=== PATIENT | female | born 1985 | race American Indian/Alaskan Native ===

== ENCOUNTER 2016-03-19 12:54 | Outpatient (CLI) | payer MEDICAID ==
[2016-03-19 14:13] LABS: Bacteria,Urine 1+ /HPF (Negative); Bilirubin,Urine NEG (Negative); Blood,Urine NEG (Negative); Ketones,Urine NEG (Negative); Leukocyte Esterase,Urine LG (Negative); Mucus,Urine FEW /HPF; Nitrite,Urine NEG (Negative); Protein,Urine <15 mg/dL mg/dL (Negative); Urobilinogen,Urine < 2.0 mg/dL (<2.0)
[2016-03-19 14:18] LABS: Hemoglobin 10.8 gm/dl (10.1-14.3); Mean Corpuscular HGB Conc 34 % (30-34); Mean Corpuscular Hemoglobin 32 pg (28-32); Mean Corpuscular Volume 97 fl (79-97); Platelet Count 173 K/mm3 (140-440); Red Blood Count 3.32 M/mm3 (3.65-5.03); Red Cell Distribution Width 14.5 % (13.2-15.2); White Blood Count 6.5 K/mm3 (4.5-11.0)
[2016-03-19 14:19] LABS: Alanine Aminotransferase 23 units/L (7-56); Lactate Dehydrogenase 178 units/L (91-180); Uric Acid 4.1 mg/dL (3.5-7.6)
[2016-03-19 14:57] VITALS: BP 133/65
--- NOTE | 2016-03-20 07:10 | Ultrasound Report ---
BIOPHYSICAL PROFILE: INDICATION: well being. No care. COMPARISON: None similar. TECHNIQUE: Transabdominal ultrasound with Doppler interrogation. 2 - breathing movements 2 - movements 2 - posture and tone 2 - Qualitative amniotic fluid volume 8 - TOTAL SCORE OF POSSIBLE 8 Heart Rate (bpm) 130
--- NOTE | 2016-03-20 11:05 | Ultrasound Report ---
OB ULTRASOUND GREATER THAN 14 WEEKS - TRANSABDOMINAL AND TRANSVAGINAL: INDICATION: well being. No care. Evaluate cervical length. COMPARISON: None similar at this institution. TECHNIQUE: Transabdominal grayscale ultrasound with Doppler interrogation. Transvaginal exam to better evaluate cervical length also performed. Gestation: price Position: cephalic Amniotic Fluid: WNL (7-24 cm) SOLANGE = 22.2 cm Placenta: posterior Placental Grade: I Heart Rate: 130 BPM Cervical length: 3.0 cm (Normal > 3 cm) NEUROANATOMY VISUALIZED: Choroid Plexus Cisterna Magnum Cerebellum Lateral Ventricle ANATOMY VISUALIZED: Stomach Kidneys Bladder Diaphragm 4 Chamber Heart Heart 3 Vessel Cord Abd. Cord Insert SPINE VISUALIZED: Longitudinal Transverse BPD: 8.4 cm = 33 w 6 d HC: 31.6 cm = 35 w 3 d AC: 31.1 cm = 35 w 0 d FL: 7.2 cm = 36 w 6 d HC/AC Ratio: 1.02 Cephalic Index: 79.6 Estimated Weight: 2678 grams Clinical age = 35 w 2 d EDC: 04-21-16 US Gest. Age = 35 w 2 d EDC: 04-21-16 CONCLUSION: Single, viable intrauterine gestation with ultrasound estimated age of 35 weeks and 2 days and EDC of 04/21/2016, currently in cephalic lie with details, as above. Thank you for the opportunity to participate in this patient's care.
== END 2016-03-19 16:20 | disposition home or self-care (01) ==
LOC: TRG 12:54
PROVIDERS: ATTEND Obstetrics & Gynecology
DX: Z34.90 Encounter for supervision of normal pregnancy, unspecified, unspecified trimester (principal); Z3A.00 Weeks of gestation of pregnancy not specified
CPT/HCPCS: 36415; 59025; 76805; 76817; 76819; 81001; 82565; 83615; 84450; 84460; 84550; 85027

== ENCOUNTER 2016-03-26 12:31 | Outpatient (CLI) | payer MEDICAID ==
[2016-03-26 14:43] LABS: Hemoglobin 10.6 gm/dl (10.1-14.3); Mean Corpuscular HGB Conc 33 % (30-34); Mean Corpuscular Hemoglobin 32 pg (28-32); Mean Corpuscular Volume 96 fl (79-97); Platelet Count 173 K/mm3 (140-440); Red Blood Count 3.33 M/mm3 (3.65-5.03); Red Cell Distribution Width 14.3 % (13.2-15.2); White Blood Count 7.6 K/mm3 (4.5-11.0)
[2016-03-26 14:47] LABS: Alanine Aminotransferase 19 units/L (7-56); Lactate Dehydrogenase 155 units/L (91-180); Uric Acid 3.6 mg/dL (3.5-7.6)
[2016-03-26 14:51] LABS: Bilirubin,Urine NEG (Negative); Blood,Urine NEG (Negative); Ketones,Urine NEG (Negative); Leukocyte Esterase,Urine MOD (Negative); Mucus,Urine 3+ /HPF; Nitrite,Urine NEG (Negative)
[2016-03-26 15:30] VITALS: BP 135/88
--- NOTE | 2016-03-26 17:05 | Ultrasound Report ---
BIOPHYSICAL PROFILE: INDICATION: Elevated blood pressure, 35 weeks . COMPARISON: 03/19/2016. TECHNIQUE: Transabdominal ultrasound with Doppler interrogation. 2 - breathing movements 2 - movements 2 - posture and tone 2 - Qualitative amniotic fluid volume 8 - TOTAL SCORE OF POSSIBLE 8 Heart Rate (bpm) 132
--- NOTE | 2016-03-27 10:23 | Ultrasound Report ---
OB ULTRASOUND: HISTORY: well-being. TECHNIQUE: Transabdominal ultrasound with Doppler interrogation. Gestation: price Position: cephalic Amniotic Fluid: WNL (7-24 cm) SOLANGE = 22.4 cm Placenta: posterior Placental Grade: I Heart Rate: 132 BPM BPD: 8.7 cm = 35 w 0 d HC: 32.4 cm = 36 w 5 d AC: 32.4 cm = 36 w 2 d FL: 7.1 cm = 36 w 2 d HC/AC Ratio: 1.00 Cephalic Index: 77.3 Estimated Weight: 2869 grams Clinical age = 36 w 2 d EDC: 04-21-16 US Gest. Age = 36 w 1 d EDC: 04-22-16
== END 2016-03-26 16:57 | disposition home or self-care (01) ==
LOC: TRG 12:31
PROVIDERS: ATTEND Obstetrics & Gynecology
DX: O26.893 Other specified pregnancy related conditions, third trimester (principal); R03.0 Elevated blood-pressure reading, without diagnosis of hypertension; O77.9 Labor and delivery complicated by fetal stress, unspecified; Z3A.36 36 weeks gestation of pregnancy
CPT/HCPCS: 36415; 59025; 76816; 76819; 81001; 82565; 83615; 84450; 84460; 84550; 85027

== ENCOUNTER 2016-04-03 01:50 | Inpatient (IN) | payer MEDICAID ==
[2016-04-03] MEDS ORDERED: LACTATED RINGERS 1,000 ML IV SCH ×2 (05:00→14:00)
[2016-04-03] MEDS ORDERED: LACTATED RINGERS 1,000 ML ONE ×2 (06:39→10:11)
[2016-04-03] MEDS ORDERED: SUBLIMAZE IV PRN (13:22)
[2016-04-03] MEDS ORDERED: ZOFRAN IV PRN (13:22)
[2016-04-03] MEDS ORDERED: NARCAN 0.4 MG/1 ML IV PRN (13:22)
[2016-04-03] MEDS ORDERED: STADOL IV PRN (13:22)
[2016-04-03] MEDS ORDERED: XYLOCAINE 2% INFILTRATI ONE (13:22)
[2016-04-03] MEDS ORDERED: MINERAL OIL PO PRN (13:22)
[2016-04-03] MEDS ORDERED: BRETHINE IVP PRN (13:22)
[2016-04-03] MEDS ORDERED: BRETHINE SUB-Q PRN (13:51)
[2016-04-03] MEDS ORDERED: ePHEDrine SULFATE IV PRN (13:55)
[2016-04-03] MEDS ORDERED: PITOCin/NS 30 UNIT/500ML 30,000 MILLIUNITS/500 ML BAG IV SCH (14:00)
[2016-04-03] MEDS ORDERED: FLAGYL PO ONE (14:00)
[2016-04-03] MEDS ORDERED: PITOCin/NS 20 UNIT/1000ML DRIP 20,000 MILLIUNITS/1,000 ML BAG IV SCH (14:00)
--- NOTE | 2016-04-03 14:15 | Ultrasound Report ---
BIOPHYSICAL PROFILE: History: well-being. Technique: Transabdominal ultrasound with Doppler interrogation. 2 - breathing movements 2 - movements 2 - posture and tone 2 - Qualitative amniotic fluid volume 8 - TOTAL SCORE OF POSSIBLE 8 Heart Rate (bpm) 125
[2016-04-03] MEDS ORDERED: POLYCILLIN/NS 2 GM/100 ML 2 GM/100 ML BAG IV ONE (15:00)
[2016-04-03] MEDS: PITOCin/NS 30 UNIT/500ML 30,000 MILLIUNITS/500 ML BAG IV SCH ×2 (15:12→21:37)
[2016-04-03 15:56] LABS: Alanine Aminotransferase 21 units/L (7-56); Lactate Dehydrogenase 226 units/L (91-180); Uric Acid 4.2 mg/dL (3.5-7.6)
[2016-04-03 16:08] LABS: Hematocrit 32.1 % (30.3-42.9); Hemoglobin 10.6 gm/dl (10.1-14.3); Mean Corpuscular HGB Conc 33 % (30-34); Mean Corpuscular Hemoglobin 32 pg (28-32); Mean Corpuscular Volume 98 fl (79-97); Platelet Count 206 K/mm3 (140-440); Red Blood Count 3.29 M/mm3 (3.65-5.03); Red Cell Distribution Width 14.7 % (13.2-15.2); White Blood Count 8.6 K/mm3 (4.5-11.0)
[2016-04-03] MEDS ORDERED: POLYCILLIN/NS 1 GM/50 ML 1 GM/50 ML BAG IV SCH (17:23)
[2016-04-03 19:15] LABS: Bilirubin,Urine NEG (Negative); Blood,Urine LG (Negative); Ketones,Urine 20 mg/dL (Negative); Leukocyte Esterase,Urine MOD (Negative); Mucus,Urine FEW /HPF; Nitrite,Urine NEG (Negative); Protein,Urine <15 mg/dL mg/dL (Negative); Urobilinogen,Urine < 2.0 mg/dL (<2.0)
--- NOTE | 2016-04-03 19:20 | History and Physical Report ---
History of Present Illness Date of examination: 04/03/16 Date of admission: 04/03/16 03:55 Chief complaint: sent from the office for high blood pressures History of present illness: Pt is a 30 year old -Thai female OMID 04/21/16 at 37w3d who presents for evaluation of elevated blood pressures in the office. She denies headache, blurry vision, scotomata or right upper quadrant pain. She has been sent to triage after each of the other two visits she has had at [facility] [employer] [facility]. She reports good movement but denies vaginal bleeding or leakage of fluid. She has had care at [facility] [employer] [facility] complicated by limited care, trichomionas infection treated today with Flagyl 2g PO. She is GBS positive. The pt was initially admitted for serial blood pressures and collection of a 24 hr urine. An MFM consultation was requested. On-call MFM Dr. Hayes called and gave a recommendation for delivery given the pt's gestational age. Past History Past Medical History: no pertinent history Past Surgical History: D&C [employer]GER History: trichomonas (treated 04/03/16) Family/Genetic History: diabetes, heart disease, hypertension, cancer Social history: no significant social history - Obstetrical History Expected Date of Delivery: 04/21/16 Actual Gestation: 37 Week(s) 4 Day(s) : 7 Para: 3 Hx # Term Pregnancies: 3 Number of Pregnancies: 0 Spontaneous Abortions: 1 Induced : 2 Number of Living Children: 3 Medications and Allergies Allergies Allergy/AdvReac Type Severity Reaction Status Date / Time No Known Allergies Allergy Unverified 03/19/16 12:55 Active Meds: Active Medications Butorphanol Tartrate (Stadol) 2 mg IV Q2H PRN PRN Reason: Pain , Severe (7-10) Fentanyl (Sublimaze) 100 mcg IV Q2H PRN PRN Reason: Labor Pain Ampicillin Sodium (Polycillin/Ns 1 Gm/50 Ml) 1 gm in 50 mls @ 0 mls/hr IV Q4H LACY PRN Reason: Protocol Lactated Ringer's (Lactated Ringers) 1,000 mls @ 125 mls/hr IV DIRECT LACY Oxytocin/Sodium Chloride (Pitocin/Ns 20 Unit/1000ml Drip) 20,000 milliunits in 1,000 mls @ 125 mls/hr IV DIRECT LACY Oxytocin/Sodium Chloride (Pitocin/Ns 30 Unit/500ml) 30,000 milliunits in 500 mls @ 0 mls/hr IV TITR LACY PRN Reason: Protocol Oxytocin/Sodium Chloride (Pitocin/Ns 30 Unit/500ml) 30,000 milliunits in 500 mls @ 1 mls/hr IV TITR LACY; 1 MILLIUNITS/MIN PRN Reason: Protocol Last Admin: 04/03/16 15:12 Dose: 1 mls/hr Mineral Oil (Mineral Oil) 30 ml PO QHS PRN PRN Reason: Constipation Naloxone HCl (Narcan 0.4 Mg/1 Ml) 0.1 mg IV Q2MIN PRN PRN Reason: Res Rate </= 8 or 02 SAT < 92% Ondansetron HCl (Zofran) 4 mg IV Q8H PRN PRN Reason: Nausea And Vomiting Review of Systems All systems: negative - Vital Signs Vital signs: Vital Signs Pulse BP Pulse Ox 129 H 186/106 98 04/03/16 02:04 04/03/16 02:04 04/03/16 02:04 Temp Pulse Resp BP Pulse Ox 98.2 F 85 20 138/91 99 04/03/16 02:58 04/03/16 18:59 04/03/16 02:58 04/03/16 18:59 04/03/16 07:49 - Physical Exam Breasts: Positive: deferred Cardiovascular: Regular rate Lungs: Positive: Clear to auscultation Abdomen: Positive: soft (gravid ) Genitourinary (Female): Positive: normal external genitalia Uterus: Positive: enlarged (gravid ) Extremities: Positive: normal - Obstetrical FHR: category 1 Uterine Contraction Monitor Mode: External Cervical Dilatation: 3 Cervical Effacement Percentage: 50 station: -4 Uterine Contraction Pattern: Irregular Uterine Tone Measurement Phase: Resting Uterine Contraction Intensity: Mild Results Result Diagrams: 04/03/16 06:07 04/03/16 04:45 Abnormal lab results 04/03/16 04/03/16 Range/Units 04:45 06:07 RBC 3.29 L (3.65-5.03) M/mm3 MCV 98 H (79-97) fl Creatinine 0.4 L (0.7-1.2) mg/dL Lactate Dehydrogenase 226 H (91-180) units/L All other labs normal. Assessment and Plan A: IUP at 37w3d Gestational HTN Polyhydramnios GBS positive P: Admit to labor and delivery. Pitocin induction of labor. GBS prophylaxis. Continue to monitor maternal and status.
[2016-04-03] MEDS ORDERED: ePHEDrine SULFATE ONE (23:46)
[2016-04-04] MEDS ORDERED: fentaNYL-BUPIV 2 MCG/ML-0.125% 200 MCG/100 ML BAG EPIDURAL ONE (00:23)
[2016-04-04] MEDS ORDERED: NARCAN 2 MG/2 ML IV PRN (00:27)
[2016-04-04] MEDS ORDERED: ePHEDrine SULFATE IV PRN (00:27)
--- NOTE | 2016-04-04 00:27 | Anesthesia Consultation ---
Anesthesia Consult and Med Hx Date of service: 04/04/16 - Airway Anesthetic Teeth Evaluation: Good ROM Head & Neck: Adequate Mental/Hyoid Distance: Adequate Mallampati Class: Class II Intubation Access Assessment: Good - Pulmonary Exam CTA: Yes - Cardiac Exam Cardiac Exam: No Murmur - Pre-Operative Health Status ASA Pre-Surgery Classification: ASA2 Proposed Anesthetic Plan: Epidural - Pulmonary Hx Asthma: No COPD: No Hx Pneumonia: No - Cardiovascular System Hx Hypertension: No - Central Nervous System Hx Seizures: No Hx Psychiatric Problems: No - Endocrine Hx Renal Disease: No Hx End Stage Renal Disease: No Hx Hypothyroidism: No Hx Hyperthyroidism: No - Hematic Hx Anemia: No Hx Sickle Cell Disease: No - Other Systems Hx Alcohol Use: No
[2016-04-04] MEDS ORDERED: fentaNYL-BUPIV 2 MCG/ML-0.125% 200 MCG/100 ML BAG EPIDURAL SCH (01:00)
--- NOTE | 2016-04-04 01:00 | Event Note ---
Date: 04/04/16 Pt only somewhat more comfortable with epidural. Per pt she experienced SROM of clear fluid. Category II tracing. SVE: /-2. Continue routine intrapartum care.Closely monitor maternal and status.
--- NOTE | 2016-04-04 02:28 | Procedure Note ---
OB Delivery Note - Delivery Date of Delivery: 04/04/16 Surgeon: CRISTAL SALAZAR Estimated blood loss: 200cc - Vaginal Delivery presentation: vertex Delivery position: OP Intrapartum events: decreased FHT variability, mult.variable deceleratio Delivery induction: oxytocin Delivery augmentation: pitocin Delivery monitor: external FHT, external uterine Route of delivery: Delivery placenta: spontaneous Delivery cord: nuchal cord, 3 umbilical vessels Episiotomy: none Delivery laceration: none Anesthesia: epidural Delivery comments: Pt progressed rapidly from 5/80/-3 to complete/complete/+2 and pushed to deliver a viable female over intact perineum via under epidural anesthesia. Head delivered in LOP position. Tight nuchal cord doubly clamped and cut. Shoulders and body delivered easily. placed on maternal abdomen and bulb suctioned. Placenta delivered spontaneously (3VC, intact). Vagina and perineum explored. No lacerations noted. EBL 200 mL. - A at 1 minute: 8 at 5 minutes: 9 Infant Gender: Female (2885g (6lb 6oz))
[2016-04-04] MEDS ORDERED: PITOCin/NS 20 UNIT/1000ML DRIP 20 UNIT/1,000 ML BAG IV SCH (03:58)
[2016-04-04] MEDS ORDERED: DULCOLAX PR PRN (03:58)
[2016-04-04] MEDS ORDERED: TYLENOL PO PRN (03:58)
[2016-04-04] MEDS ORDERED: PHENERGAN PR PRN (03:58)
[2016-04-04] MEDS ORDERED: DERMOPLAST TP PRN (03:58)
[2016-04-04] MEDS ORDERED: MILK OF MAGNESIA PO PRN (03:58)
[2016-04-04] MEDS ORDERED: TUCKS PAD TP PRN (03:58)
[2016-04-04] MEDS ORDERED: BENADRYL PO PRN (03:58)
[2016-04-04] MEDS ORDERED: LANSINOH TP PRN (03:58)
[2016-04-04] MEDS ORDERED: SODIUM CHLORIDE FLUSH SYRINGE 10 ML IV NR (03:58)
[2016-04-04] MEDS ORDERED: PHENERGAN PO PRN (03:58)
[2016-04-04] MEDS ORDERED: ZOFRAN IV PRN (03:58)
[2016-04-04] MEDS: PERCOCET 5/325 PO PRN ×4 (04:17→22:03)
[2016-04-04] MEDS: MOTRIN PO SCH ×3 (06:05→16:25)
[2016-04-04] MEDS ORDERED: MAGNESIUM SULFATE 4GM/100ML 4 GM/100 ML BAG IV ONE (09:14)
--- NOTE | 2016-04-04 09:44 | Progress Note ---
Assessment and Plan O; BP elevated this am 160-180/90 currently 140/80 A: Stable PP Day 1 Gestational Hypertension P: Repeat [facility] labs MD consult Magnesium Sulfate and Labetalol Subjective - Subjective Date of service: 04/04/16 Patient reports: appetite normal, voiding normally, pain well controlled, flatus , ambulating normally, other (Denies PIH S&S) [place]: doing well Objective - Vital Signs Latest vital signs: Vital Signs Temp Pulse Pulse Resp BP BP Pulse Ox 04/04/16 04:00 97.7 F 78 18 150/86 04/04/16 03:18 81 162/90 04/04/16 03:15 98.5 F 81 18 162/90 98 04/04/16 03:08 73 180/98 04/04/16 02:54 82 100 04/04/16 02:53 83 88 04/04/16 02:49 77 98 04/04/16 02:47 81 176/96 04/04/16 02:43 80 99 04/04/16 02:39 73 99 04/04/16 02:37 80 191/101 94 04/04/16 02:34 82 98 04/04/16 02:29 85 98 04/04/16 02:24 87 99 04/04/16 02:19 90 99 04/04/16 02:15 97.6 F 73 18 180/98 99 04/04/16 02:08 89 186/103 04/04/16 02:00 98.5 F 81 18 176/96 99 04/04/16 01:59 98 H 100 04/04/16 01:54 114 H 100 04/04/16 01:53 66 L 04/04/16 01:49 98 H 97 04/04/16 01:43 97 H 100 04/04/16 01:39 93 H 165/84 100 04/04/16 01:34 103 H 100 04/04/16 01:29 100 H 100 04/04/16 01:24 102 H 100 04/04/16 01:19 109 H 100 04/04/16 01:14 106 H 100 04/04/16 01:09 103 H 170/87 100 04/04/16 01:04 91 H 100 04/04/16 00:59 94 H 100 04/04/16 00:54 84 98 04/04/16 00:49 85 99 04/04/16 00:44 92 H 99 04/04/16 00:39 88 99 04/04/16 00:37 96 H 171/84 04/04/16 00:36 93 H 153/75 04/04/16 00:33 92 H 163/104 04/04/16 00:31 88 161/94 04/04/16 00:28 94 H 99 04/04/16 00:27 92 H 169/83 04/04/16 00:25 91 H 166/84 04/04/16 00:23 105 H 169/87 98 04/04/16 00:21 96 H 161/79 04/04/16 00:19 90 156/76 04/04/16 00:18 94 H 98 04/04/16 00:17 93 H 171/84 04/04/16 00:15 95 H 169/84 04/04/16 00:13 104 H 170/89 99 04/04/16 00:11 111 H 180/90 04/04/16 00:09 105 H 184/86 04/04/16 00:08 104 H 99 04/04/16 00:06 106 H 187/101 04/04/16 00:03 86 98 04/03/16 23:58 94 H 98 04/03/16 23:53 103 H 99 04/03/16 23:48 86 100 04/03/16 22:36 86 142/87 04/03/16 22:06 98 H 139/83 04/03/16 21:19 83 157/88 04/03/16 20:21 94 H 100 04/03/16 20:17 88 99 04/03/16 20:11 98 H 100 04/03/16 20:06 93 H 99 04/03/16 20:01 87 99 04/03/16 19:56 92 H 98 04/03/16 19:51 83 99 04/03/16 19:46 93 H 99 04/03/16 19:41 94 H 99 04/03/16 19:35 98.3 F 18 169/92 04/03/16 19:27 85 169/92 04/03/16 18:59 85 138/91 04/03/16 17:59 97 H 138/74 04/03/16 17:00 84 152/84 04/03/16 16:32 92 H 140/84 04/03/16 15:59 93 H 153/79 04/03/16 14:59 94 H 141/89 04/03/16 14:02 100 H 164/90 04/03/16 13:01 99 H 167/89 04/03/16 12:31 96 H 163/101 04/03/16 10:59 100 H 131/74 04/03/16 10:10 108 H 127/75 Intake and Output 04/03/16 04/04/16 04/04/16 22:59 06:59 14:59 Intake Total 1964.4 615 Output Total 850 800 Balance 1114.4 -185 Intake: IV 1464.4 375 Lactated Ringers 1,000 ml 1350 @ 125 mls/hr IV DIRECT LACY Rx#:[id number] PITOCin/NS 20 UNIT/1000ML 375 DRIP 20,000 milliunits In 1,000 ml @ 125 mls/hr IV DIRECT LACY Rx#: [id number] PITOCin/NS 30 UNIT/500ML 14.4 30,000 milliunits In 500 ml @ 1 MILLIUNITS/MIN 1 mls/hr IV TITR LACY Rx#: [id number] POLYCILLIN/NS 2 GM/100 ML 100 2 gm In 100 ml @ 0 mls/ hr IV ONCE ONE Rx#: [id number] Oral 500 Intake, Free Water 240 Output: Urine 850 800 Void 850 800 Other: Total, Intake Amount 500 Total, Output Amount 150 800 Estimated Blood Loss 200 - Exam Breasts: Present: normal Abdomen: Present: normal appearance, soft, normal bowel sounds. Absent: distention, tenderness Vulva: both: normal Uterus: Present: normal, firm, fundal height at umbilicus. Absent: bogginess, tenderness Extremities: Present: normal. Absent: edema - Labs Labs: Abnormal lab results 04/03/16 04/03/16 Range/Units 04:45 06:07 RBC 3.29 L (3.65-5.03) M/mm3 MCV 98 H (79-97) fl Creatinine 0.4 L (0.7-1.2) mg/dL Lactate Dehydrogenase 226 H (91-180) units/L
--- NOTE | 2016-04-04 10:01 | Ultrasound Report ---
OB ULTRASOUND: TECHNIQUE: Transabdominal ultrasound with Doppler interrogation. Gestation: price Position: cephalic Amniotic Fluid: Increased (> 24 cm) SOLANGE = 25.7 cm Placenta: posterior Placental Grade: I Heart Rate: 143 BPM BPD: 8.83 cm = 35 w 5 d HC: 32.23 cm = 36 w 3 d AC: 33.83 cm = 37 w 5 d FL: 7.48 cm = 38 w 2 d HC/AC Ratio: 0.95 Cephalic Index: 80.6 Estimated Weight: 3215 grams LMP: 07-16-15 Clinical age = 37 w 3 d EDC: 04-21-16 US Gest. Age = 37 w 0 d EDC: 04-24-16
[2016-04-04 10:19] LABS: Hematocrit 30.5 % (30.3-42.9); Hemoglobin 10.2 gm/dl (10.1-14.3); Mean Corpuscular HGB Conc 34 % (30-34); Mean Corpuscular Hemoglobin 33 pg (28-32); Mean Corpuscular Volume 97 fl (79-97); Platelet Count 174 K/mm3 (140-440); Red Blood Count 3.15 M/mm3 (3.65-5.03); Red Cell Distribution Width 14.2 % (13.2-15.2); White Blood Count 10.6 K/mm3 (4.5-11.0)
[2016-04-04] MEDS: FEOSOL PO SCH ×2 (10:24→21:58)
[2016-04-04] MEDS: PRENATAL VITAMIN PO SCH (10:24)
[2016-04-04 10:37] LABS: Alanine Aminotransferase 21 units/L (7-56); Uric Acid 3.7 mg/dL (3.5-7.6)
[2016-04-04] MEDS: NORMODYNE PO SCH ×2 (11:12→21:58)
[2016-04-04] MEDS ORDERED: MAGNESIUM SULFATE 40GM/1000ML 40 GM/1,000 ML BAG IV SCH (11:30)
[2016-04-04 14:30] LABS: Hematocrit 27.9 % (30.3-42.9); Hemoglobin 9.3 gm/dl (10.1-14.3)
--- NOTE | 2016-04-04 16:43 | Admit Criteria Form ---
Admission Criteria Documentation: HYPERTENSIVE DISORDERS OF Clinical Indications for Admission to Inpatient Care (Place 'X' for any and all applicable criteria): Admission is indicated for ANY ONE of the following (1)(2)(3)(4)(5): [ ]I. Eclampsia[A][B] [ ]II. Preeclampsia with severe features (ie, severe preeclampsia) indicated by ANY ONE of the following[B][C]: [ ]a) SBP greater than or equal to 160 mm Hg or DBP greater than or equal to 110 mm Hg on 2 occasions at least 4 hours apart while the patient is at bed rest (unless antihypertensive therapy is initiated before this time) [ ]b) Platelet count less than 100,000/mm3 (100 x109/L) [ ]c) Impaired liver function as indicated by ANY ONE of the following: [ ]i. Elevation of liver enzymes (eg, SGOT, SGPT) to twice normal concentration [ ]ii. Severe persistent right upper quadrant or epigastric pain unresponsive to medication and not accounted for by alternative diagnosis [ ]d) Progressive renal insufficiency indicated by ANY ONE of the following: [ ]i. Serum creatinine concentration greater than 1.1 mg/dL (97 micromoles/L) [ ]ii. Doubling (from baseline) of serum creatinine concentration in the absence of other renal disease [ ]e) Pulmonary edema [ ]f) Cerebral or visual symptoms (eg, headache, Altered mental status , changes in vision) [ ]III. Delivery planned due to nonsevere preeclampsia as indicated by ALL of the following: [ ]a) Nonsevere preeclampsia present as indicated by ALL of the following: [ ]i. Woman at 20 or more weeks' gestation [ ]ii. New-onset SBP greater than or equal to 140 mm Hg but less than 160 mm Hg or DBP greater than or equal to 90 mm Hg but less than 110 mm Hg on 2 occasions at least 4 hours apart [ ]iii. Proteinuria present as indicated by ANY ONE of the following: [ ]A. Urinary protein excretion greater than or equal to 300 mg per 24-hour collection (or this amount extrapolated from a shorter timed collection) [ ]B. Protein/creatinine ratio greater than or equal to 0.3 (measured in mg/dL) [ ]b) Delivery indicated due to ANY ONE of the following: [ ]i. Gestational age of 37 0/7 weeks or more [ ]ii. Gestational age of 34 0/7 weeks to 36 6/7 weeks and ANY ONE of the following: [ ]A. Progressive labor or rupture of membranes [ ]B. Abnormal biophysical profile [ ]C. Suspected abruptio placentae [ ]D. Ultrasound estimate of weight less than 5th percentile [ ]E. Other indication for delivery [X ]IV. Delivery planned due to gestational hypertension[D] because of ANY ONE of the following: [X ]a) Delivery indicated because gestational age of 37 0/7 weeks or more has been reached [ ]b) Gestational age of 34 0/7 weeks to 36 6/7 weeks for which delivery is indicated because of ANY ONE of the following: [ ]i. Progressive labor or rupture of membranes [ ]ii. Abnormal biophysical profile [ ]iii. Suspected abruptio placentae [ ]iv. Ultrasound estimate of weight less than 5th percentile [ ]v. Other indication for delivery [ ]V. Hypertension of any category[E] during with acute end organ damage as indicated by ANY ONE of the following: [ ]a) Hypertensive encephalopathy (eg, Altered mental status that is severe or persistent )(11) [ ]b) Cerebral infarction [ ]c) Intracranial hemorrhage [ ]d) Myocardial ischemia or infarction [ ]e) Pulmonary edema [ ]f) Aortic dissection [ ]g) Seizure [ ]h) Papilledema [ ]i) Microangiopathic hemolytic anemia [ ]j) Visual loss [ ]k) Acute renal failure [ ]) Hypertension during with evidence of compromise as indicated by ANY ONE of the following: [ ]a) Abnormal heart tones [ ]b) Abnormal stress test [ ]c) Abnormal biophysical profile [ ]VII) patient requires inpatient control of blood pressure indicated by (see Hypertensive Disorders of : Observation Care [facility] guideline as appropriate) ALL of the following: [ ]a) SBP is greater than or equal to 160 mm Hg or DBP is greater than or equal to 105 mm Hg [ ]b) Blood pressure cannot be reduced below these levels with outpatient or observation care treatment (eg, oral medications not effective) Extended stay beyond goal length of stay may be needed for : [ ]a) Eclampsia [ ]b) Ongoing compromise [ ]c) Complications of hypertensive disorders of [ ]d) Active comorbidities (eg, heart failure, poorly controlled diabetes, renal insufficiency) [ ]e) Persistent hypertension [ ]f) Delivery planned The original [facility] [employer] content created by Toriangela Lawrence has been revised. The portions of the content which have been revised are identified through the use of italic text or in bold, and Roberto Lawrence has neither reviewed nor approved the modified material. All other unmodified content is copyright [facility]. Please see references footnoted in the original [facility] [employer] edition 2016. Admission Criteria Met: Yes
--- NOTE | 2016-04-04 16:53 | Event Note ---
Date: 04/04/16 Return to evaluate patient status. Denies PIH S&S. Magnesium Sulfate not started as ordered. RN reports error secondary to Magnesium Sulfate being discontinue prior and was unsure of new order being accurate.
[2016-04-05] MEDS: MOTRIN PO SCH ×4 (01:05→15:25)
[2016-04-05] MEDS ORDERED: M-M-R II VACCINE SUB-Q ONE (06:00)
[2016-04-05] MEDS ORDERED: BOOSTRIX IM ONE (06:00)
[2016-04-05] MEDS: PERCOCET 5/325 PO PRN ×3 (08:11→22:03)
--- NOTE | 2016-04-05 08:44 | Progress Note ---
Assessment and Plan A: PPD#1 s/p at term secondary to Gestational Hypertension, Pedal Edema P: Administer Lasix. Monitor today with discharge tomorrow. Subjective - Subjective Date of service: 04/05/16 Principal diagnosis: s/p at term for GHTN Interval history: Pt denies PIH symptoms. Reports pedal edema. No other concerns . Patient reports: appetite normal, voiding normally, pain well controlled, ambulating normally, no nauseated [place]: doing well Objective - Vital Signs Latest vital signs: Vital Signs Temp Pulse Resp BP 04/05/16 06:10 82 152/84 04/05/16 00:52 98.3 F 87 18 140/80 04/04/16 21:50 81 150/79 04/04/16 16:50 97.8 F 82 20 142/80 04/04/16 12:40 97.9 F 88 20 116/66 04/04/16 10:35 78 140/83 04/04/16 08:58 98.9 F 76 18 144/80 Intake and Output 04/04/16 04/05/16 04/05/16 22:59 06:59 14:59 Intake Total 600 180 Balance 600 180 Intake: Oral 240 Intake, Free Water 360 180 Other: Total, Intake Amount 240 # Voids Void 1 2 - Exam Breasts: Present: deferred Cardiovascular: Present: Regular rate Lungs: Present: Clear to auscultation Abdomen: Present: soft Uterus: Present: fundal height below umbilicus Extremities: Present: edema (pedal edema ) - Labs Labs: Abnormal lab results 04/04/16 04/04/16 04/04/16 Range/Units 09:36 09:36 14:15 RBC 3.15 L (3.65-5.03) M/mm3 Hgb 9.3 L (10.1-14.3) gm/dl Hct 27.9 L (30.3-42.9) % MCH 33 H (28-32) pg Creatinine 0.3 L (0.7-1.2) mg/dL
--- NOTE | 2016-04-05 08:48 | Discharge Summary ---
Providers - Providers Date of Admission: 04/03/16 03:55 Date of discharge: 04/06/16 Attending physician: CALLI MINOR MD 04/04/16 03:58 Consult to Clinical Abstractor [CONS] Routine Reason For Exam: assistance with , SNS Primary care physician: CALLI MINOR MD Hospitalization Reason for admission: other (Gestational Hypertension ) Delivery: Procedure details: Please see delivery note. Episiotomy: none Laceration: none Other procedures: none complications: none Discharge diagnosis: IUP at term delivered [place] baby: female Hospital course: Patient was admitted initially for gestational hypertension. She underwent induction of labor and delivered a viable female via spontaneous vaginal delivery. She was started on labetalol 200 mg twice a day during her course and she met discharge criteria on day #2. She will be seen in the office in 1 week for blood pressure check. Condition at discharge: Stable Disposition: DISCHARGED TO HOME OR SELFCARE - Discharge Diagnoses (1) Gestational hypertension Status: Acute Qualifiers: Trimester: T (2) Term of female Status: Acute (3) Anemia Status: Acute Qualifiers: Anemia type: iron deficiency Iron deficiency anemia type: unspecified iron deficiency Vitamin B12 deficiency anemia type: V Folate deficiency anemia type: F Bone marrow failure anemia type: B Hemolytic anemia type: H Other causes of anemia: O Qualified Code(s): D50.9 - Iron deficiency anemia, unspecified Plan - Discharge Medications Prescriptions: Ferrous Sulfate [Feosol 325 MG tab] 325 mg PO BID #60 tablet HYDROcodone/APAP 5-325 [[place] 5/325] 1 each PO Q6HR PRN #20 tablet PRN Reason: Pain Ibuprofen [Motrin] 800 mg PO Q8HR PRN #30 tablet PRN Reason: Pain Vit-Fe Fumar-FA [ Vitamin] 1 tab PO QDAY #30 tablet - Provider Discharge Summary Activity: no sex for 6 weeks, no heavy lifting 4 weeks, no strenuous exercise Diet: routine Instructions: routine Additional instructions: [] Smoking cessation referral if applicable(refer to patient education folder for contact #) [] Refer to [facility]'s [facility] Booklet Call your doctor immediately for: * Fever > 100.5 * Heavy vaginal bleeding ( >1 pad per hour) * Severe persistent headache * Shortness of breath * Reddened, hot, painful area to leg or breast * Drainage or odor from incision. * Keep incision clean and dry at all times and follow doctor's instructions regarding bathing/showering - Follow up plan Follow up: CALLI MINOR MD [Primary Care Provider] - 7 Days
[2016-04-05] MEDS: LASIX PO SCH (10:12)
[2016-04-05] MEDS: PRENATAL VITAMIN PO SCH (10:12)
[2016-04-05] MEDS: FEOSOL PO SCH ×2 (10:12→22:01)
[2016-04-05] MEDS: NORMODYNE PO SCH ×2 (10:12→22:03)
--- NOTE | 2016-04-05 14:05 | Progress Note ---
Subjective Date of service: 04/04/16 Principal diagnosis: s/p at term for GHTN Interval history: 1 Day post-delivery with epidural. Patient states tolerated epidural well, pain is well controlled, no residual weakness in legs, minimal back pain, no anesthetic complications, and has been ambulating well. Objective - Constitutional Vitals: Vital Signs - 12hr 04/05/16 04/05/16 04/05/16 06:10 08:45 13:04 Temperature 98.5 F 97.7 F Pulse Rate [ 82 83 Left From Monitor] Pulse Rate [ 82 Right] Respiratory 20 20 Rate Blood Pressure 152/84 145/82 [Left Arm] Blood Pressure 147/75 [Right Arm] - Labs CBC & Chem 7: 04/04/16 14:15 04/04/16 09:36 Labs: Abnormal lab results 04/04/16 Range/Units 14:15 Hgb 9.3 L (10.1-14.3) gm/dl Hct 27.9 L (30.3-42.9) %
[2016-04-06] MEDS: MOTRIN PO SCH ×3 (00:30→11:00)
[2016-04-06] MEDS: LASIX PO SCH (10:48)
[2016-04-06] MEDS: FEOSOL PO SCH (10:48)
[2016-04-06] MEDS: PERCOCET 5/325 PO PRN (10:48)
[2016-04-06] MEDS: NORMODYNE PO SCH (10:48)
[2016-04-06] MEDS: PRENATAL VITAMIN PO SCH (10:48)
[2016-04-06 12:31] VITALS: BP 148/86
== END 2016-04-06 11:45 | disposition home or self-care (01) | DRG 774 ==
LOC: TRG 01:50 → LD 03:55 → OBSVTOIN 03:55 → OB 04-04 03:57
PROVIDERS: ADMIT Obstetrics & Gynecology; ATTEND Obstetrics & Gynecology
PROC: 10E0XZZ Delivery of Products of Conception, External Approach (ICD-10-PCS; principal; 2016-04-04)
PROC: 3E0S3CZ (ICD-10-PCS; 2016-04-04)
PROC: 00HU33Z Insertion of Infusion Device into Spinal Canal, Percutaneous Approach (ICD-10-PCS; 2016-04-04)
PROC: 3E033VJ Introduction of Other Hormone into Peripheral Vein, Percutaneous Approach (ICD-10-PCS; 2016-04-04)
DX: O13.4 Gestational [pregnancy-induced] hypertension without significant proteinuria, complicating childbirth (principal); O99.824 Streptococcus B carrier state complicating childbirth; O69.1XX0 Labor and delivery complicated by cord around neck, with compression, not applicable or unspecified; O40.3XX0 Polyhydramnios, third trimester, not applicable or unspecified; O76 Abnormality in fetal heart rate and rhythm complicating labor and delivery; Z3A.37 37 weeks gestation of pregnancy; Z37.0 Single live birth; Z22.4 Carrier of infections with a predominantly sexual mode of transmission; O99.02 Anemia complicating childbirth; D50.9 Iron deficiency anemia, unspecified; Z86.19 Personal history of other infectious and parasitic diseases
CPT/HCPCS: 36415; 76816; 76819; 81001; 82565; 83615; 83735; 84450; 84460; 84550; 85014; 85018; 85027; 86850; 86900; 86901; 88307; J0290; J0595; J2590; J7120